=== PATIENT | male | born 1960 | race Caucasian/White ===

== ENCOUNTER 2017-12-10 04:57 | Emergency (ER) | payer BC ==
[~2017-12-10] VITALS: Ht 165.1 cm; Wt 79.5 kg
[2017-12-10 05:39] LABS: HEMATOCRIT 41.3 % (38.0-50.0); HEMOGLOBIN 14.3 G/DL (12.5-16.6); MCH 30.4 PG (29.0-34.0); MCHC 34.6 G/DL (30.0-36.0); MCV 87.7 FL (86-99); PLATELET COUNT 226 K/uL (156-360); RBC DIS.WIDTH-CV 13.4 % (11.8-14.6); RBC DIS.WIDTH-SD 43.4 % (39-53); RED BLOOD COUNT 4.71 M/uL (4.00-5.50)
[2017-12-10 05:49] LABS: ALBUMIN 4.1 g/dL (3.2-4.8); CHLORIDE 110 mEq/L (99-109); POTASSIUM 4.1 mEq/L (3.7-5.4); SODIUM 143 mEq/L (136-147)
[2017-12-10 05:52] LABS: GLUCOSE 158 mg/dL (70-99); TOTAL PROTEIN 6.7 g/dL (6.4-8.3)
[2017-12-10 05:53] LABS: TOTAL BILIRUBIN 0.3 mg/dL (0.0-1.0)
[2017-12-10 05:55] LABS: ALKALINE PHOSPHATASE 52 IU/L (3-129); CREATININE 1.3 mg/dL (0.6-1.3)
[2017-12-10 05:56] LABS: UREA NITROGEN (BUN) 27 mg/dL (9-23)
[2017-12-10 05:57] LABS: AST (GOT) 22 IU/L (2-34)
[2017-12-10 05:58] LABS: ALT (GPT) 31 IU/L (3-49)
[2017-12-10 05:59] LABS: GFR ESTIMATE (CALCULATED) > 59 mL/min/ (58.99-99999); LIPASE 11 U/L (1.0-51.0)
[2017-12-10 07:49] LABS: APPEARANCE SL.HAZY ((CLEAR)); BILIRUBIN NEGATIVE; BLOOD LARGE; COLOR YELLOW ((YELLOW)); GLUCOSE (STRIP) NEGATIVE; KETONES NEGATIVE; LEUKOCYTES NEGATIVE; NITRITE NEGATIVE; PROTEIN (STRIP) NEGATIVE; UROBILINOGEN 0.2 MG/DL (0.2-1.0)
[2017-12-10 08:19] LABS: BACTERIA RARE /HPF; EPITHELIAL CELLS RARE /HPF; HYALINE CASTS 0-5 /LPF; MUCUS TRACE /LPF; RED BLOOD CELLS TNTC /HPF (0-5); UCUL ADDED? YES; WHITE BLOOD CELLS 0-5 /HPF (0-5)
[2017-12-10] MEDS ORDERED: MOTRIN600 MG PO (08:38)
[2017-12-10] MEDS ORDERED: PERCOCET 5/31 TABLET PO (08:38)
[2017-12-10] MEDS ORDERED: ZOFRAN ODT4 MG PO (08:38)
[2017-12-10] MEDS ORDERED: FLOMAX0.4 MG PO (08:38)
[2017-12-10 08:53] VITALS: BP 152/85
== END 2017-12-10 08:14 | disposition home or self-care (01) ==
LOC: EDBD 04:57 → EME 04:57
DX: N13.2 Hydronephrosis with renal and ureteral calculous obstruction (principal); K57.30 Diverticulosis of large intestine without perforation or abscess without bleeding; N50.811 Right testicular pain; R11.2 Nausea with vomiting, unspecified
CPT/HCPCS: 74176; 80053; 81003; 83690; 85027; 87086; 99281; 99285; J1885; J2405; J3010; J7030